=== PATIENT | female | born 1960 ===

== ENCOUNTER 2021-08-28 06:37 | Day surgery (SDC) | payer OTHER | END 2021-08-28 11:15 | disposition home or self-care (01) | LOC: AMB-ENDOS 06:37 | PROVIDERS: ATTEND Colon & Rectal Surgery | DX: C20 Malignant neoplasm of rectum (principal); K57.30 Diverticulosis of large intestine without perforation or abscess without bleeding ==

== ENCOUNTER 2021-10-02 12:00 | Inpatient (IN) | payer OTHER ==
[~2021-10-02] VITALS: Ht 167.6 cm; Wt 83.9 kg
[2021-10-03] MEDS ORDERED: AMBIEN10 MG PO (12:06)
[2021-10-03] MEDS ORDERED: ZESTRIL20 MG PO (12:07)
[2021-10-03] MEDS ORDERED: LIPITOR20 MG PO (12:07)
[2021-10-03] MEDS ORDERED: CLONAZEPAM2 M1 PO (12:07)
[2021-10-04] MEDS ORDERED: DICLOFENAC SODI75 MG (15:06)
[2021-10-04] MEDS ORDERED: DOCUSATE SODIU100 MG (15:06)
[2021-10-04] MEDS ORDERED: PANTOPRAZOLE SO40 MG (15:06)
== END 2021-10-07 11:10 | disposition home or self-care (01) | DRG 331 ==
LOC: O/R 10-04 07:35 → SURH 10-04 09:15 → EDSEX 10-04 09:30 → SURH 10-04 19:24
PROVIDERS: ADMIT Colon & Rectal Surgery; ATTEND Colon & Rectal Surgery
PROC: 0DBP4ZZ Excision of Rectum, Percutaneous Endoscopic Approach (ICD-10-PCS; 2021-10-04)
PROC: 07BC4ZZ Excision of Pelvis Lymphatic, Percutaneous Endoscopic Approach (ICD-10-PCS; 2021-10-04)
PROC: 4A1BXSH Monitoring of Gastrointestinal Vascular Perfusion using Indocyanine Green Dye, External Approach (ICD-10-PCS; 2021-10-04)
PROC: 0DTN4ZZ Resection of Sigmoid Colon, Percutaneous Endoscopic Approach (ICD-10-PCS; principal; 2021-10-04 09:15)
DX: C20 Malignant neoplasm of rectum (principal); R59.0 Localized enlarged lymph nodes; K63.5 Polyp of colon; K57.30 Diverticulosis of large intestine without perforation or abscess without bleeding; Z90.5 Acquired absence of kidney; I10 Essential (primary) hypertension

== ENCOUNTER 2022-11-26 09:44 | Day surgery (SDC) | payer OTHER ==
[~2022-11-26 09:44] MED LIST: AMBIEN10 MG PO; CLONAZEPAM2 M1 PO; DICLOFENAC SODI75 MG; DOCUSATE SODIU100 MG; LIPITOR20 MG PO; PANTOPRAZOLE SO40 MG; ZESTRIL20 MG PO
== END 2022-11-26 16:20 | disposition home or self-care (01) ==
LOC: AMB-ENDOS 09:44
PROVIDERS: ATTEND Colon & Rectal Surgery
DX: K63.89 Other specified diseases of intestine (principal); Z85.048 Personal history of other malignant neoplasm of rectum, rectosigmoid junction, and anus; K64.8 Other hemorrhoids; Z20.822 Contact with and (suspected) exposure to COVID-19

== ENCOUNTER 2024-06-15 07:24 | Day surgery (SDC) | payer OTHER ==
[2024-06-15] MEDS ORDERED: MIDAZOLAM HCL 2 MG/2 ML VIAL IV ONE (11:30)
[2024-06-15] MEDS ORDERED: ONDANSETRON HCL 2 MG/ML VIAL IV ONE (11:30)
[2024-06-15] MEDS ORDERED: DIPHENHYDRAMINE HCL 50 MG/ML VIAL 1ML IV ONE (11:30)
[2024-06-15] MEDS ORDERED: fentaNYL CITRATE 50 MCG/ML AMPUL IV PUSH ONE (11:30)
== END 2024-06-15 13:25 | disposition home or self-care (01) ==
LOC: AMB-ENDOS 07:24
PROVIDERS: ATTEND Colon & Rectal Surgery
DX: K63.5 Polyp of colon (principal); K52.89 Other specified noninfective gastroenteritis and colitis; K62.4 Stenosis of anus and rectum

== ENCOUNTER 2024-10-19 05:30 | Day surgery (SDC) | payer OTHER ==
[2024-10-19] MEDS ORDERED: MIDAZOLAM HCL 2 MG/2 ML VIAL IV ONE (09:45)
[2024-10-19] MEDS ORDERED: fentaNYL CITRATE 50 MCG/ML AMPUL IV PUSH ONE (09:45)
[2024-10-19] MEDS ORDERED: DIPHENHYDRAMINE HCL 50 MG/ML VIAL 1ML IV ONE ×2 (09:45)
== END 2024-10-19 11:00 | disposition home or self-care (01) ==
LOC: AMB-ENDOS 05:30
PROVIDERS: ATTEND Colon & Rectal Surgery
DX: C20 Malignant neoplasm of rectum (principal); K62.4 Stenosis of anus and rectum; Z85.038 Personal history of other malignant neoplasm of large intestine

== ENCOUNTER 2025-02-22 06:25 | Day surgery (SDC) | payer OTHER ==
[2025-02-22] MEDS ORDERED: fentaNYL CITRATE 50 MCG/ML AMPUL IV PUSH ONE (10:30)
[2025-02-22] MEDS ORDERED: DIPHENHYDRAMINE HCL 50 MG/ML VIAL 1ML IV ONE (10:30)
[2025-02-22] MEDS ORDERED: MIDAZOLAM HCL 2 MG/2 ML VIAL IV ONE (10:30)
== END 2025-02-22 11:50 | disposition home or self-care (01) ==
LOC: AMB-ENDOS 06:25
PROVIDERS: ATTEND Colon & Rectal Surgery
DX: C20 Malignant neoplasm of rectum (principal); Z85.038 Personal history of other malignant neoplasm of large intestine; K62.4 Stenosis of anus and rectum